=== PATIENT | female | born 1985 | race Caucasian/White ===

== ENCOUNTER 2020-12-05 18:06 | Emergency (ER) | payer OTHER ==
[~2020-12-05] VITALS: Ht 162.6 cm; Wt 111.1 kg
[2020-12-05] MEDS ORDERED: MIRTAZAPINE45 MG PO (18:37)
[2020-12-05] MEDS ORDERED: CITALOPRAM HBR20 MG PO (18:37)
[2020-12-05] MEDS ORDERED: RISPERIDONE2 MG PO (18:37)
[2020-12-05] MEDS ORDERED: PRAZOSIN HCL2 MG PO (18:37)
--- OUTSIDE RECORDS SUMMARY | 2020-12-05 20:12 | XMS ---
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 ESusanne VISIT COUNT (12 MO.) 1 CARLEE Echeverria TOTAL 1 NOTE: Visits indicate total known visits. ED/UCC VISIT TRACKING (12 MO.) 12/05/2020 18:07 CARLEE [facility] OR TYPE: Emergency COMPLAINT: - SHAKEY INPATIENT VISIT TRACKING (12 MO.) No inpatient visits to display in this time frame [id number]
--- NOTE | 2020-12-06 14:39 | EKG ---
[facility] [address] [facility] [address] [place], [place] [address] Signed Normal sinus rhythm Normal ECG No previous ECGs available Confirmed by DILCIA SNOWDEN DO ([id number]) on 12/06/2020 2:39:41 PM Electronically Signed By: DILCIA SNOWDEN DO 12/06/20 1439 PATIENT NAME: DEIRDRE MASON Electrocardiogram DATE OF : 81 PHYSICIAN: DILCIA SNOWDEN DO REPORT #: [id number] REPORT IS CONFIDENTIAL AND NOT TO BE RELEASED WITHOUT AUTHORIZATION
== END 2020-12-05 21:25 | disposition home or self-care (01) ==
LOC: ED 18:06
DX: R55 Syncope and collapse (principal); R53.82 Chronic fatigue, unspecified; R53.81 Other malaise; G47.00 Insomnia, unspecified; F17.200 Nicotine dependence, unspecified, uncomplicated; Z88.5 Allergy status to narcotic agent; Z88.1 Allergy status to other antibiotic agents; Z79.899 Other long term (current) drug therapy
CPT/HCPCS: 80053; 81001; 83735; 84703; 85025; 93005; 93010; 96360; 96361; 99284-25; J7030